=== PATIENT | male | born 1955 | race Two or more races ===

== ENCOUNTER 2022-12-15 22:40 | Emergency (ER) | payer MEDICARE, MEDICAID ==
[~2022-12-15] VITALS: Ht 177.8 cm; Wt 87.2 kg
[2022-12-15 22:51] VITALS: BP 162/93
[2022-12-15 23:46] LABS: CHLORIDE 108 mEq/L (98-107)
[2022-12-16 00:05] LABS: BASOPHILS % 0.7 % (0.0-2.0); EOSINOPHILS % 3.9 % (0.0-5.0); HEMATOCRIT. 43.9 % (42.0-52.0); HEMOGLOBIN. 14.9 g/dL (14.0-18.0); LYMPHOCYTES % 28.5 % (20.0-50.0); MEAN CORPUSCULAR HEMOGLOBIN 32.3 pg (28.0-32.0); MEAN CORPUSCULAR VOLUME 95.4 fL (80.0-94.0); MEAN PLATELET VOLUME 9.3 fl (7.4-10.4); MONOCYTES % 8.3 % (2.0-8.0); NEUTROPHILS % 58.6 % (40.0-76.0); PLATELET 310 x1000/uL (130-400); RED BLOOD CELL COUNT 4.61 mill/uL (4.7-6.1); RED CELL DISTRIBUTION WIDTH 13.3 % (11.6-14.6)
[2022-12-16] MEDS ORDERED: AMLO5TAB88 MT (01:48)
== END 2022-12-16 04:13 | disposition home or self-care (01) ==
LOC: ER 22:40
DX: M54.2 Cervicalgia (principal); M54.50 Low back pain, unspecified; G89.29 Other chronic pain; Z98.890 Other specified postprocedural states
CPT/HCPCS: 36415; 72131; 80048; 85025; 99284